=== PATIENT | female | born 1930 | race Caucasian/White ===

== ENCOUNTER 2020-11-01 19:04 | Inpatient (IN) | payer MEDICARE, BC ==
[~2020-11-01] VITALS: Ht 162.6 cm; Wt 77.7 kg
[2020-11-01 21:04] LABS: BASO # 0.1 (0.0-0.2); BASO % 0.5 % (0.0-2.0); EOS % 0.1 % (0-4.0); GRAN # 9.6 (1.4-6.5); GRAN % 86.8 % (42.2-75.2); HEMATOCRIT 42.3 % (37.0-47.0); HEMOGLOBIN 13.8 g/dl (12.5-16.0); LYMPH # 0.6 (1.2-3.4); LYMPH % 5.8 % (20.0-51.0); MEAN CELL VOLUME 96 fl (80.0-100.0); MEAN CORPUSCULAR HEMOGLOBIN 31 pg (27.0-31.0); MEAN CORPUSCULAR HGB CONC 33 g/dl (33.0-37.0); MEAN PLATELET VOLUME 11.1 fl (7.4-10.4); MONO # 0.7 (0.1-0.6); MONO % 6.4 % (1.7-9.3); PLATELET COUNT 341 K/mm3 (130-400); RED BLOOD COUNT 4.41 M/mm3 (4.10-5.30); REDCELL DISTRIBUTION WIDTH-CV 13.8 % (11.5-14.5)
[2020-11-01] MEDS ORDERED: ZESTRIL 20MG TA20 MG PO (21:11)
[2020-11-01] MEDS ORDERED: TOPROL XL 25MG25 MG PO (21:11)
[2020-11-01] MEDS ORDERED: SYNTHROID0.1 MG/TAB PO (21:12)
[2020-11-01] MEDS ORDERED: ZOCOR 20MG20 MG PO (21:12)
[2020-11-01 21:13] LABS: ALBUMIN 4.2 gm/dL (3.5-5.0); BILIRUBIN,TOTAL 0.9 mg/dL (0.0-1.0); CREATININE, serum 0.71 (0.52-1.25); POTASSIUM 3.9 mmol/L (3.4-5.0); TOTAL PROTEIN 7.5 gm/dL (6.4-8.2)
[2020-11-01] MEDS ORDERED: CALCIUM CARBON650 M2 (21:13)
[2020-11-01] MEDS ORDERED: ASPIRIN 81M81 MG/TA2 PO (21:13)
[2020-11-01] MEDS ORDERED: HCTZ 25MG TAB25 MG PO (21:14)
[2020-11-01 21:24] LABS: INR 1.1 (0.8-3.0); PROTHROMBIN TIME 12.1 SECONDS (9.7-12.8)
[2020-11-01 21:27] LABS: PARTIAL THROMBOPLASTIN TIME 29.1 SECONDS (26.0-37.0)
--- NOTE | 2020-11-01 23:18 | NUR ---
PT ADMITTED TO ROOM 343 PER BED. O2 STARTED AT 2L N/C PER ER STAFF FOR 02 SAT 87%.
[2020-11-01 23:27] VITALS: BP 122/56; PULSE 64; TEMP 98.2
[2020-11-02] VITALS (12 sets, daily range): BP systolic 109–136; BP diastolic 47–58; PULSE 61–74; TEMP 97.1–98.1
--- NOTE | 2020-11-02 00:30 | NUR ---
LT LEG ELEVATED ON PILLOWS. ICE PACK TO LT ANKLE.
--- NOTE | 2020-11-02 00:31 | NUR ---
MPO FOR POSSIBLE SURGERY TOMORROW.
--- NOTE | 2020-11-02 08:00 | NUR ---
Patient in bed resting. Alert and oriented x 3. Assessment complete. Denies pain at this time. LLE in splint, patient able to move toes, Cap refill <3sec. SCD to RLE. Fluids infusing per orders. Denies further needs at this time.
--- NOTE | 2020-11-02 11:29 | NUR ---
Plan is to return home to [facility] with diversity manager or to [facility] for SNF. SW met with patient in room about care. Patient reports that she resides locally and has a DTR in [place] that does not know that she is in the hospital and does not want her alerted. Patient reports that her DTR is the next contact if there was an emergency Erma Christy . Patient reports that she has a POA and it is with her DTR but will call her to obtain it. Patient reports that her PCP is Dr. Vasquez and she obtains medications at [facility]. Patient denies having any DME use and can provider her own transportation. Will continue to follow care for Rehab needs and pt evaluation.
--- NOTE | 2020-11-02 11:51 | NUR ---
Patient to OR by bed.
--- NOTE | 2020-11-02 14:20 | NUR ---
Patient up from OR.Alert and oriented. Denies pain at this time. LLE with brace in place. Patient states she is unable to feel touch below knee, Pulse intact. Deneis needs at this time.
--- NOTE | 2020-11-02 15:51 | NUR ---
Multineedle Shirrer contacted [facility] at [facility] and faxed referral as patient may need SNF upon discharge. [facility] advised they would accept patient. SW will continue to follow.
--- NOTE | 2020-11-02 18:44 | NUR ---
Patient has done well throughout the day, incontinent care provided. Patient states she continues to have numbness below her knee. Denies pain at this time. Denies further needs at this time. Will report off to night manager.
--- NOTE | 2020-11-02 19:50 | NUR ---
Resting in bed. Assessment complete. Lungs clear. Heart sounds normal. Bowels active x4. pulses present throughout. Right lower extremity edema +2. Left lower extremity CMS-patient unable to feel touch and unable to move at this time. Pedal pulse intact. Will closely monitor. IV to left AC without complications. Denies pain at this time. Denies other needs. Call light in reach.
--- NOTE | 2020-11-02 23:24 | NUR ---
Resting in bed. Denies needs. Denies pain. Call light in reach.
--- NOTE | 2020-11-03 00:16 | NUR ---
Resting in bed. Denies pain. CMS of left foot-patient unable to move and feel touch. Foot warm to touch and pulse intact. Will continue to closely monitor.
[2020-11-03 00:31] VITALS: BP 130/53; PULSE 66; TEMP 97.9
--- NOTE | 2020-11-03 01:57 | NUR ---
Resting in bed asleep. Call light in reach.
--- NOTE | 2020-11-03 03:50 | NUR ---
Resting in bed. Denies needs. Denies pain. Call light in reach. CMS- able to feel touch at this time.
[2020-11-03 04:49] VITALS: BP 135/52; PULSE 69; TEMP 97.8
--- NOTE | 2020-11-03 05:48 | NUR ---
Patient had uneventful night. Patient CMS for left foot intact. Patient able to move toes and feel touch this AM. Resting in bed currently. Call light in reach.
--- NOTE | 2020-11-03 06:40 | NUR ---
Report given to GISSELLE Mckeon
[2020-11-03 07:45] LABS: HEMATOCRIT 32.9 % (37.0-47.0); HEMOGLOBIN 10.7 g/dl (12.5-16.0)
[2020-11-03 07:50] VITALS: BP 127/48; PULSE 75; TEMP 98.1
--- NOTE | 2020-11-03 08:00 | NUR ---
Patient in bed resting. Alert and oriented x 3. Assessment complete. Denies pain at this time. Patient able to move toes on LLE. Pedal pulses intact. Splint to LLE is intact. Fluids continue infusing at this time. Patient encouraged to CDB and use IS, currently on 2L of o2 via NC. Denies further needs at this time.
[2020-11-03] MEDS ORDERED: TYLENOL 325MG325 MG PO (09:15)
[2020-11-03] MEDS ORDERED: NORCO 325 MG-51 TAB PO (09:18)
[2020-11-03] MEDS ORDERED: ASPI325T6 PO (09:43)
[2020-11-03 11:46] VITALS: BP 120/48; PULSE 68; TEMP 98.7
--- NOTE | 2020-11-03 12:10 | NUR ---
First visit from the millstone cleaner. No needs right now.
[2020-11-03 12:47] VITALS: BP 120/48; PULSE 68; TEMP 98.7
--- NOTE | 2020-11-03 14:20 | NUR ---
Assisted patient to dress for discharge. Incontinent care provided to patient. Contacted Armani ramirez for report to [facility]. Patient continues to deny pain. Patinet up to wheelchair x2 assit. Deneis further needs at this time. INT discontinued, catheter tip intact. Patient out by wheelchair with surgical staff.
--- NOTE | 2020-11-03 15:07 | NUR ---
Advertising Photographer attended clinical rounds with the team and patient ready for discharge today. [facility]PITA contacted [facility] and faxed clinical updates. [facility] advised they can accept today. ARPITA set transportation for 1400. ARPITA collaborated with HOA Roman to write emergency admit orders as patient has not met three midnight criteria. ARPITA met with patient who is in agreement with discharge today. Patient states her daughter is aware she is discharging to [facility] and that her daughter has already been in contact with [facility]. ARPITA faxed discharge orders and negative COVID to [facility] at [facility]. Patient to discharge to [facility] this afternoon for a skilled stay.
== END 2020-11-03 14:20 | DRG 493 ==
LOC: COL.ER 19:04 → SURG 21:21
PROVIDERS: Emergency Medicine; Physician Assistant; ADMIT Student in an Organized Health Care Education/Training Program
PROC: 0QSK04Z Reposition Left Fibula with Internal Fixation Device, Open Approach (ICD-10-PCS; principal; 2020-11-01)
PROC: 0QSH04Z Reposition Left Tibia with Internal Fixation Device, Open Approach (ICD-10-PCS; 2020-11-01)
PROC: 0QSH04Z Reposition Left Tibia with Internal Fixation Device, Open Approach (ICD-10-PCS; 2020-11-01)
DX: S82.852A Displaced trimalleolar fracture of left lower leg, initial encounter for closed fracture (principal); J98.11 Atelectasis; R09.02 Hypoxemia; D64.9 Anemia, unspecified; I10 Essential (primary) hypertension; E03.9 Hypothyroidism, unspecified; E78.5 Hyperlipidemia, unspecified; Z79.01 Long term (current) use of anticoagulants; W01.0XXA Fall on same level from slipping, tripping and stumbling without subsequent striking against object, initial encounter
CPT/HCPCS: 99232-AI; 99239; A9284; C1713; C9113; G0378; J0690; J1100; J2250; J2270; J2405; J2704; J2795; J3010; J7030